=== PATIENT | female | born 1990 | race Caucasian/White ===

== ENCOUNTER 2020-08-17 12:35 | Emergency (ER) | payer BC ==
[~2020-08-17] VITALS: Ht 170.2 cm; Wt 72.9 kg
[2020-08-17] MEDS ORDERED: MULTTAB20 PO (13:04)
[2020-08-17 13:39] LABS: BASO % 0.4 % (0.0-1.0); EOS % 0.5 % (0.0-3.0); HEMATOCRIT 44.2 % (36.0-47.0); HEMOGLOBIN 14.6 g/dl (12.0-15.5); LYMPH # 0.8 10^3/uL (1.5-5.0); LYMPH % 10.8 % (24.0-44.0); MEAN CORPUSCULAR HEMOGLOBIN 29.9 pg (27.0-33.0); MEAN CORPUSCULAR VOLUME 90.6 fl (80.0-96.0); MONO # 0.4 10^3/uL (0.0-0.8); MONO % 5.2 % (0.0-5.0); NEUTROPHILS # 6.4 10^3/uL (1.5-8.5); NEUTROPHILS % 82.7 % (36.0-66.0); PLATELET COUNT, AUTOMATED 238 10^3/uL (150-450); RED BLOOD COUNT 4.88 10^6/uL (4.00-5.40); WHITE BLOOD COUNT 7.7 10^3/uL (4.0-10.0)
[2020-08-17 14:05] LABS: BLOOD UREA NITROGEN 9 MG/DL (7-18); CALCIUM LEVEL 9.1 MG/DL (8.5-10.1); CARBON DIOXIDE LEVEL 27 MEQ/L (21-32); CHLORIDE LEVEL 108 MEQ/L (98-107); CREATININE FOR GFR 0.69 MG/DL (0.55-1.30); GLOMERULAR FILTRATION RATE > 60.0 (>60); GLUCOSE, FASTING 128 MG/DL (70-100); POTASSIUM SERUM 4.2 MEQ/L (3.5-5.1); SODIUM LEVEL 139 MEQ/L (136-145)
[2020-08-17 14:10] VITALS: BP 147/97
--- NOTE | 2020-08-17 15:03 | REP ---
INDICATION: VAGINAL BLEEDING COMPARISON: None. TECHNIQUE: Transabdominal and transvaginal 1st trimester obstetrical ultrasound with color Doppler evaluation. FINDINGS: Anteverted uterus measures 8.7 x 3.7 x 3.9 cm. The endometrial complex measures 12 mm thickness with complex mobile debris. No intrauterine identified and the patient is noted to be actively bleeding. Findings suggest spontaneous in progress. The bilateral maternal ovaries are normal in appearance and vascularity without torsion. Right ovary measures 3.0 x 1.6 x 1.5 cm (RI 0.68). Left ovary measures 2.5 x 1.0 x 2.3 cm (RI 0.46). No pelvic fluid or adnexal mass lesion. IMPRESSION: Findings most compatible with spontaneous in progress. Correlation with serial HCG levels recommended. <Electronically signed by Norman Mixon > 08/17/20 [id number]
== END 2020-08-17 16:50 | disposition home or self-care (01) ==
LOC: M ED 12:35
DX: O20.0 Threatened abortion (principal); Z3A.08 8 weeks gestation of pregnancy; Z88.0 Allergy status to penicillin

== ENCOUNTER → 2020-08-19 | Outpatient (CLI) | payer BC ==
[~2020-08-19] MED LIST: MULTTAB20 PO
== END ==
LOC: M LAB 13:52
PROVIDERS: ATTEND Physician Assistant
DX: O20.0 Threatened abortion (principal)